=== PATIENT | female | born 1995 | race Caucasian/White ===

== ENCOUNTER 2018-10-08 22:52 | Emergency (ER) | payer BC, OTHER | END 2018-10-09 00:30 | disposition home or self-care (01) | LOC: JER 22:52 | DX: S93.402A Sprain of unspecified ligament of left ankle, initial encounter (principal); X50.1XXA Overexertion from prolonged static or awkward postures, initial encounter; Y93.73 Activity, racquet and hand sports; Y92.39 Other specified sports and athletic area as the place of occurrence of the external cause; Y99.8 Other external cause status ==